=== PATIENT | female | born 1990 | race Caucasian/White ===

== ENCOUNTER 2016-06-28 21:46 | Emergency (ER) ==
[2016-06-28] MEDS ORDERED: MOTRIN PO ONE (23:36)
[2016-06-28] MEDS ORDERED: MBX SOLUTION MT ONE (23:36)
--- NOTE | 2016-06-28 23:39 | PROVIDER DOCUMENTATION ---
HPI-EENT General - General Chief Complaint: Mouth Pain Stated Complaint: TONGUE ABSCESS Time Seen by Provider: 06/28/16 22:48 Source: patient Allergies/Adverse Reactions: Patient Allergies Allergy/AdvReac Type Severity Reaction Status Date / Time escitalopram oxalate * AdvReac Intermediate DIZZINESS Verified 06/25/16 01:19 [From Lexapro] - History of Present Illness-EENT General Nature of Presenting Problem: 25 year old F presents to the ED with a cc of a mouth sore x3 days. EENT Location: reports: mouth Quality of Pain: reports: aching Severity: reports: mild Onset/Duration: reports: 3 days ago Timing: reports: still present Prearrival Treatment: Initiated no prearrival treatment Locality of Occurance: Home Similar Symptoms Previously?: No Recently seen or treated by another doctor?: No Review of Systems - Adult - REVIEW OF SYSTEMS - ADULT Constitutional: denies: chills, fever Eyes: reports: no symptoms reported Ears, Nose, Mouth & Throat: reports: mouth/dental pain. denies: mouth swelling Cardiovascular: reports: no symptoms reported Respiratory: denies: cough, shortness of breath Gastrointestinal: reports: no symptoms reported Genitourinary: reports: no symptoms reported Musculoskeletal: reports: no symptoms reported Integumentary: reports: no symptoms reported Neurological: reports: no symptoms reported Psychiatric: reports: no symptoms reported Endocrine: reports: no symptoms reported Hematologic/Lymphatic: reports: no symptoms reported Allergic/Immunologic: reports: no symptoms reported All Other Systems: Reviewed and Negative Past History - Adult - PAST MEDICAL HISTORY-ADULT Review of Records: reports: Nursing Assessment Review, Medications Reviewed Major Childhood Illnesses: reports: denies history Additional History: LMP 1 month ago - PRIOR SURGERIES/PROCEDURES Surgical/Procedure History: reports: reviewed, not pertinent - IMMUNIZATION STATUS Childhood Immunizations: See Nurse Assessment Flu Vaccine: See Nurse Assessment - FAMILY HISTORY Family History: reviewed, not pertinent - SOCIAL HISTORY Smoking: non-smoker Substance Use: none/never Alcohol Use Frequency: never Physical Exam- EENT - Physical Exam EENT Initial Vital Signs Reviewed: Yes General Appearance: appears well, alert, no apparent distress Throat Exam: other (aphthous ulcer under jalil) Respiratory: chest non-tender, lungs clear, normal breath sounds Cardiovascular: normal peripheral pulses, regular rate, rhythm, no edema Integumentary: normal color, normal turgor, warm/dry Psych/Mental Status: AL, normal mood/affect, normal thought content, normal thought process, oriented x 3 Progress - PLAN OF CARE/RESULTS Progress/Plan/Lab Results: plan of care: medications Orders Category Date Time Status Diphenhyramine/Al&mg Oh/Lido [Mbx Solution] Med 06/28/16 23:36 Discontinued 15 ml MT NOW ONE Ibuprofen [Motrin] Med 06/28/16 23:36 Discontinued 800 mg PO NOW ONE Vital Signs - 24 hr 06/28/16 21:53 Temperature 97.7 F Pulse Rate 96 H Respiratory 20 Rate Blood Pressure 143/104 O2 Sat by Pulse 100 Oximetry Pt given results and will be d/c home w/ rx to follow up with PCP. Pt verbally understood instructions. PT remained clinically stable throughout the course of the ED stay and will return if symptoms worsen. Departure - Departure Time of Disposition Order: 23:35 DIAGNOSIS: Ulcer, aphthous, minor Disposition: HOME 01 Certified Medical Emergency: Emergent Condition: Good Additional Instructions: Follow up with primary care doctor. Return to ED for any new or worsening symptoms. Establish care with a primary physician by calling the physician referral line below. ED Follow Up Instructions: You have been treated by a care provider in the Emergency Department. These instructions are being provided to you so you can have an understanding of how to care for yourself upon discharge. Upon discharge from the Emergency Department, you are responsible for making arrangements for follow-up care by a physician of your choice. Take all prescribed medications as directed. Return to the Emergency Department immediately for any new or worsening symptoms. You may call the Physician Referral phone number at [phone] to obtain a list of Physicians who are taking new patients. Prescriptions: Ibuprofen [Motrin] 800 mg PO Q8H PRN PRN #30 tablet PRN Reason: Pain Lidocaine 2% Viscous [Xylocaine 2% Viscous] 5 ml PO Q3H PRN PRN #1 bottle PRN Reason: Pain Referrals: None,PCP [Primary Care Provider] - Attestation - Scribe Verification/Attestation Scribe:: Missy Smith Acting as Scribe for:: Pieter Alcaraz Scribe documention review:: This chart was documented by a scribe and accurately reflects the service the provider performed and the decisions made by the provider. Physician Attestation - Physician Attestation I, the provider, attest to the following statement:: Pieter Alcaraz Physician documentation Attestation:: This documentation recorded by the scribe accurately reflects the service I personally performed and the decisions made by me.
[2016-06-29 00:03] VITALS: BP 142/100
== END 2016-06-29 00:03 | disposition home or self-care (01) ==
LOC: ED 21:46
DX: K12.0 Recurrent oral aphthae (principal); K13.70 Unspecified lesions of oral mucosa
CPT/HCPCS: 99282